=== PATIENT | female | born 1935 | race Caucasian/White ===

== ENCOUNTER 2017-06-12 11:01 | Emergency (ER) | payer MEDICARE ==
[2017-06-12] MEDS ORDERED: HYDROcodone/Acetaminophen 5/325 mg Tablet ONE (12:16)
--- NOTE | 2017-06-12 13:07 | RAD ---
AP PELVIS ONE VIEW: History: Fall. Pelvic injury. FINDINGS: Mild degenerative changes of the hips and sacroiliac joints are evident. Sacral ala and pelvic rings are intact. Phleboliths and other vascular calcifications are present throughout the pelvis. Metallic clips overlie the right lower quadrant. IMPRESSION: No acute osseous abnormalities are demonstrated. POS: [facility]
[2017-06-12] MEDS ORDERED: Acetaminophen 500 MG TAB ONE (13:58)
== END 2017-06-12 14:49 | disposition home or self-care (01) ==
LOC: ERS 11:01
DX: S00.81XA Abrasion of other part of head, initial encounter (principal); Z79.899 Other long term (current) drug therapy; W10.9XXA Fall (on) (from) unspecified stairs and steps, initial encounter
CPT/HCPCS: 72170

== ENCOUNTER 2017-06-20 09:27 | Emergency (ER) | payer MEDICARE ==
[2017-06-20] MEDS ORDERED: Acetaminophen 500 MG TAB ONE (11:27)
--- NOTE | 2017-06-20 12:14 | RAD ---
LUMBAR SPINE 3 VEIWS: Date: 06/20/17 HISTORY: Low back pain. Fall. COMPARISON: None. FINDINGS: Five lumbar-type vertebral bodies. Mild loss of vertebral body height at L2. Fracture is age-indeterm inate. There is mild retropulsion Remaining lumbar vertebra are intact. Disc space heights are preser shari. No spondylolisthesis. No spondylolysis. Atherosclerosis of the aorta is noted. Calcification projecting over the T11-T12 disc space is of uncertain etiology in origin. IMPRESSION: Indeterminate L2 compression fracture. MRI if clinically warranted. POS: [facility]
== END 2017-06-20 14:28 | disposition home or self-care (01) ==
LOC: ERS 09:27
DX: S32.029A Unspecified fracture of second lumbar vertebra, initial encounter for closed fracture (principal); N18.6 End stage renal disease; I50.9 Heart failure, unspecified; Z79.899 Other long term (current) drug therapy; W18.30XA Fall on same level, unspecified, initial encounter
CPT/HCPCS: 72100

== ENCOUNTER 2017-08-16 08:07 | Outpatient (CLI) | payer MEDICARE ==
--- NOTE | 2017-08-16 09:26 | RAD ---
TWO VIEWS LUMBAR SPINE: Indication: Fall with history of lumbar spinal fracture. Comparison: 06-20-17 FINDINGS: The compression abnormality involving L2 demonstrates further loss of height within the central aspec t. There is no approximately 75% loss of height involving the central endplate regions. There is slig ht bowing of the posterior cortex of the L2 vertebral level. There is slight retrolisthesis of L2 on L3. There is multilevel disc degenerative disease of the lumbar spine, most pronounced at L5-S1 and L 4-5. There is multilevel facet osteoarthritic change. There is diffuse osteopenia. IMPRESSION: 1. Further loss of height involving the L2 central endplate compression fracture with now approximate ly 75% loss of height. There some mild bulging of the posterior contour of the L2 vertebral body whic h may be inducing some central canal narrowing. There is slight retrolisthesis L2 and L3 which is lik douglas degenerative in nature. 2. Moderate spondylosis of the lumbar spine. 3. Diffuse osteopenia. POS: [facility]
--- NOTE | 2017-08-16 09:34 | CT ---
CT BRAIN NONCONTRAST: DATE: 08/16/17 TIME: 0830 HOURS HISTORY: 82-year-old female status post traumatic head injury from fall. M80.88XA W19.XXXA COMPARISON: 10/06/09. FINDINGS: Again noted is the small focus of gliosis abutting the inferolateral aspect of the frontal horn of th e right lateral ventricle, and abutting the undersurface of the right caudate head. Again noted is th e mild to moderate diffuse ventriculomegaly. No acute subdural, epidural, subarachnoid, or intra-axia l hemorrhage. No mass effect or midline shift. Diffuse brain parenchymal volume loss. The brain is un changed in appearance compared to 10/06/09. There is a small mucus retention cyst or polyp at the rig ht sphenoid air cell. The left sphenoid air cell, and frontal and ethmoid sinuses, and bilateral tymp anomastoid cavities, are grossly clear. No depressed calvarial fracture is identified. IMPRESSION: 1. No acute intracranial findings. 2. Diffuse involutional changes of the brain, not unusual for age. 3. Old small insult inferior to the right caudate head. 4. No significant interval change overall since 10/06/09. CARYN Claros POS: [facility]
--- NOTE | 2017-08-16 10:06 | CT ---
CT LUMBAR SPINE: Date: 08-16-17 Provided Clinical History: L2 fracture. FINDINGS: Comparison is made with radiographs dated 06-20-17. Lumbar alignment appears normal. Five non-rib giovani ring lumbar type vertebral bodies are present. Lumbar alignment remains normal. Burst fracture of L2 is redemonstrated. There is slightly greater loss of vertebral body height than on the prior study. Vertebral body heights appear otherwise preserved. No concerning lytic or blastic lesions are seen. The visualized extraspinal soft tissues appear unremarkable with the exception of vascular calcification. There is mild central canal stenosis at L2 on the basis of retropulsion in the posterior aspect of th e L2 vertebral body. No additional central canal or foraminal narrowing is apparent. IMPRESSION: L2 burst fracture is redemonstrated with mild associated central canal stenosis and slightly greater loss of vertebral body height than on the 06-20-17 study. POS: [facility]
== END 2017-08-16 08:08 | disposition home or self-care (01) ==
LOC: TBSIIMAG 08:07
PROVIDERS: ATTEND Surgery
DX: M80.88XA Other osteoporosis with current pathological fracture, vertebra(e), initial encounter for fracture (principal); S32.021A Stable burst fracture of second lumbar vertebra, initial encounter for closed fracture; M48.061 Spinal stenosis, lumbar region without neurogenic claudication; M47.816 Spondylosis without myelopathy or radiculopathy, lumbar region; M85.88 Other specified disorders of bone density and structure, other site; W19.XXXA Unspecified fall, initial encounter
CPT/HCPCS: 70450; 72100; 72131

== ENCOUNTER 2017-09-16 08:22 | Outpatient (CLI) | payer MEDICARE ==
--- NOTE | 2017-09-16 09:59 | RAD ---
2 VIEWS LUMBAR SPINE: Date: 09/16/17 HISTORY: Follow-up vertebral body fracture. COMPARISON: 08/16/17. FINDINGS: The previously described compression fracture of the L2 vertebral body is again seen. The vertical he ight loss is similar to the prior exam, and again there appears to be slight retropulsion of fracture fragment suggesting burst-type fracture of this vertebral body. There is slight retrolisthesis of L2 on L3 which is also a stable finding. Remaining vertebral body heights are within normal limits and no new fracture or subluxation is seen. Scattered osteophytes are seen in the lumbar spine. Vascular calcifications again seen in the abdomi nal aorta and iliac arteries. Surgical clips overlie the right hemipelvis. IMPRESSION: Stable compression fracture L2 vertebral body with stable slight retrolisthesis of L2 on L3. Degree o f height loss is unchanged, and no new compression fracture is seen involving the lumbar spine. POS: [facility]
== END 2017-09-16 08:23 | disposition home or self-care (01) ==
LOC: TBSI PT 08:22
PROVIDERS: ATTEND Surgery
DX: S22.008A Other fracture of unspecified thoracic vertebra, initial encounter for closed fracture (principal); M43.16 Spondylolisthesis, lumbar region; S32.029A Unspecified fracture of second lumbar vertebra, initial encounter for closed fracture
CPT/HCPCS: 72100

== ENCOUNTER 2024-02-13 13:48 | Outpatient (CLI) | payer MEDICARE | END 2024-02-13 13:49 | disposition home or self-care (01) | LOC: BICMAMMO 13:48 | PROVIDERS: ATTEND Family Medicine | DX: Z13.820 Encounter for screening for osteoporosis (principal); Z78.0 Asymptomatic menopausal state; M85.89 Other specified disorders of bone density and structure, multiple sites | CPT/HCPCS: 77080 ==